=== PATIENT | male | born 1940 | race Caucasian/White ===

== ENCOUNTER 2016-08-26 18:35 | Inpatient (IN) | payer MEDICARE, MEDICAID ==
[2016-08-26 20:10] LABS: Hematocrit 47 % (42-52); Mean Corpuscular HGB Conc 32 g/dl (31-36); Mean Corpuscular Hemoglobin 27 pg (27-31); Mean Corpuscular Volume 84 fL (80-94); Mean Platelet Volume 9 um3 (7.4-10.4); Red Cell Distribution Width 17 % (10.5-15); White Blood Count 26.2 10^3/ul (3.5-10.8)
[2016-08-26 20:11] LABS: Add Diff/Slide Review? Slide Review Added; Comments Flag Yes
[2016-08-26 20:27] LABS: Albumin 4.2 g/dL (3.2-5.2); BUN/Creatinine Ratio 19.3 (8-20); Calcium 10.9 mg/dL (8.6-10.3); EGFR African American 39.4 (>60); EGFR Non-African American 30.6 (>60); Globulin 5.2 g/dL (2-4); Total Bilirubin 0.8 mg/dL (0.2-1.0); Total Protein 9.4 g/dL (6.4-8.9)
[2016-08-26 20:33] LABS: Troponin I 0.05 ng/mL (<0.04)
[2016-08-26 20:34] LABS: Potassium 5.4 mmol/L (3.5-5.0)
[2016-08-26] MEDS ORDERED: Piperac/Tazob 3.375 gm in NS* 3.375 GM/100 ML BAG IVPB ONE (20:38)
--- NOTE | 2016-08-26 20:44 | ED ---
Harvey Mcgarry Michael, scribed for Chuy Lane MD on 08/26/16 at 2006 . Adult Trauma - HPI Summary HPI Summary: 76 y/o male was [facility] from [facility], and he comes to the ED after a fall. The pt is non-ambulatory per EMS, and the jail staff believe he fell out of bed without LOC. He has laceration on right ear and injured the right sided of his trunk per EMS report. He also c/o SOB and constipation. The PMHx is significant for CVA and dementia. - History of Current Complaint Chief Complaint: EDShortnessOfBreath Stated Complaint: DIFF BREATHING Time Seen by Provider: 08/26/16 18:55 Hx Obtained From: EMS, Medical Records Hx From Patient Unobtainable Due To: Dementia Mechanism of Injury: Fall Ambulatory at the Scene: Yes Loss of Consciousness: no loss of consciousness Onset/Duration: Started Hours Ago, Still Present Onset of Pain: Immediate Onset Severity: Moderate Current Severity: Moderate Location: Abdomen/Pelvis - right sided Associated Signs & Symptoms: Positive: SOB, Other: - laceration-right ear pain. right sided trunk pain. constipation. Negative: Loss of Consciousness - Allergy/Home Medications Allergies/Adverse Reactions: Allergies Allergy/AdvReac Type Severity Reaction Status Date / Time No Known Allergies Allergy Verified 03/07/16 09:24 Home Medications: Home Medications Magnesium Hydroxide LIQ* [Milk of Magnesia LIQ*] 30 ml PO BID PRN 08/26/16 [ History Confirmed 08/26/16] Sennosides-Docusate Sodium [Colace 2-in-1 8.6-50 mg] 1 tab PO BEDTIME 08/26/16 [ History Confirmed 08/26/16] PMH/Surg Hx/FS Hx/Imm Hx Cardiovascular History: Reports: Hx Hypertension Musculoskeletal History: Reports: Other Musculoskeletal History - hemiplegia Sensory History: Reports: Hx Contacts or Glasses Opthamlomology History: Reports: Hx Contacts or Glasses Neurological History: Reports: Hx CVA, Hx Dementia, Other Neuro Impairments/ Disorders - Left hemiplegia, presumably from stroke Psychiatric History: Reports: Hx Depression, Other Psychiatric Issues/Disorders - Major Depresssive Disorder Infectious Disease History: Denies: Traveled Outside the [place] in Last 30 Days - Family History Known Family History: Positive: Unknown - The patient is a poor historian - Social History Occupation: Retired Lives: [facility] Alcohol Use: None Hx Substance Use: No Substance Use Type: Reports: None Hx Tobacco Use: No Smoking Status (MU): Never Smoked Tobacco Review of Systems Positive: Other - constipation Positive: Other - right sided trunk pain Positive: Other - laceration right ear. Negative: Syncope All Other Systems Reviewed And Are Negative: Yes Physical Exam Triage Information Reviewed: Yes Vital Signs On Initial Exam: Initial Vitals Pulse Resp BP Pulse Ox 141 32 116/78 92 08/26/16 18:38 08/26/16 18:38 08/26/16 18:38 08/26/16 18:38 Vital Signs Reviewed: Yes Completion Of Physical Exam Limited Due To: Extremis Appearance: Positive: No Pain Distress, Ill-Appearing Skin: Positive: Warm Head/Face: Positive: Normal Head/Face Inspection Eyes: Positive: SH[place]DA Neck: Positive: Supple Respiratory/Lung Sounds: Positive: Rales, Rhonchi - COARSE BILAT DIFFUSE Cardiovascular: Positive: Tachycardia Abdomen Description: Positive: Nontender, Soft Bowel Sounds: Positive: Present - [place] Coma Scale Coma Scale Total: 14 Diagnostics - Vital Signs Vital Signs Temp Pulse Resp BP Pulse Ox 08/26/16 18:42 98.7 F 141 33 116/78 92 08/26/16 18:38 141 32 116/78 92 - Laboratory Lab Results: Lab Results 08/26/16 08/26/16 08/26/16 Range/Units 20:04 20:04 20:04 WBC 26.2 H (3.5-10.8) 10^3/ul RBC 5.60 H (4.0-5.4) 10^6/ul Hgb 15.0 (14.0-18.0) g/dl Hct 47 (42-52) % MCV 84 (80-94) fL MCH 27 (27-31) pg MCHC 32 (31-36) g/dl RDW 17 H (10.5-15) % Plt Count 482 H D (150-450) 10^3/ul MPV 9 (7.4-10.4) um3 Neut % (Auto) 82.4 (38-83) % Lymph % (Auto) 9.8 L (25-47) % Canadian % (Auto) 7.2 (1-9) % Eos % (Auto) 0.1 (0-6) % Baso % (Auto) 0.5 (0-2) % Absolute Neuts (auto) 21.6 H (1.5-7.7) 10^3/ul Absolute Lymphs (auto) 2.6 (1.0-4.8) 10^3/ul Absolute Monos (auto) 1.9 H (0-0.8) 10^3/ul Absolute Eos (auto) 0 (0-0.6) 10^3/ul Absolute Basos (auto) 0.1 (0-0.2) 10^3/ul Absolute Nucleated RBC 0.02 10^3/ul Nucleated RBC % 0.1 INR (Anticoag Therapy) (0.89-1.11) Sodium 145 (133-145) mmol/L Potassium 5.4 H (3.5-5.0) mmol/L Chloride 103 (101-111) mmol/L Carbon Dioxide 28 (22-32) mmol/L Anion Gap 14 H (2-11) mmol/L BUN 41 H (6-24) mg/dL Creatinine 2.12 H (0.67-1.17) mg/dL Est GFR ( Amer) 39.4 (>60) Est GFR (Non-Af Amer) 30.6 (>60) BUN/Creatinine Ratio 19.3 (8-20) Glucose 137 H (70-100) mg/dL Lactic Acid 4.2 H* (0.5-2.0) mmol/L Calcium 10.9 H (8.6-10.3) mg/dL Total Bilirubin 0.80 (0.2-1.0) mg/dL AST 51 H (13-39) U/L ALT 21 (7-52) U/L Alkaline Phosphatase 106 H (34-104) U/L Troponin I 0.05 H* (<0.04) ng/mL Total Protein 9.4 H (6.4-8.9) g/dL Albumin 4.2 (3.2-5.2) g/dL Globulin 5.2 H (2-4) g/dL Albumin/Globulin Ratio 0.8 L (1-3) 05//17 Range/Units 20:04 WBC (3.5-10.8) 10^3/ul RBC (4.0-5.4) 10^6/ul Hgb (14.0-18.0) g/dl Hct (42-52) % MCV (80-94) fL MCH (27-31) pg MCHC (31-36) g/dl RDW (10.5-15) % Plt Count (150-450) 10^3/ul MPV (7.4-10.4) um3 Neut % (Auto) (38-83) % Lymph % (Auto) (25-47) % Canadian % (Auto) (1-9) % Eos % (Auto) (0-6) % Baso % (Auto) (0-2) % Absolute Neuts (auto) (1.5-7.7) 10^3/ul Absolute Lymphs (auto) (1.0-4.8) 10^3/ul Absolute Monos (auto) (0-0.8) 10^3/ul Absolute Eos (auto) (0-0.6) 10^3/ul Absolute Basos (auto) (0-0.2) 10^3/ul Absolute Nucleated RBC 10^3/ul Nucleated RBC % INR (Anticoag Therapy) 0.94 (0.89-1.11) Sodium (133-145) mmol/L Potassium (3.5-5.0) mmol/L Chloride (101-111) mmol/L Carbon Dioxide (22-32) mmol/L Anion Gap (2-11) mmol/L BUN (6-24) mg/dL Creatinine (0.67-1.17) mg/dL Est GFR ( Amer) (>60) Est GFR (Non-Af Amer) (>60) BUN/Creatinine Ratio (8-20) Glucose (70-100) mg/dL Lactic Acid (0.5-2.0) mmol/L Calcium (8.6-10.3) mg/dL Total Bilirubin (0.2-1.0) mg/dL AST (13-39) U/L ALT (7-52) U/L Alkaline Phosphatase (34-104) U/L Troponin I (<0.04) ng/mL Total Protein (6.4-8.9) g/dL Albumin (3.2-5.2) g/dL Globulin (2-4) g/dL Albumin/Globulin Ratio (1-3) Result Diagrams: 08/26/16 20:04 08/26/16 20:04 Lab Statement: Any lab studies that have been ordered have been reviewed, and results considered in the medical decision making process. - Radiology CXR Xray Interpretation: Positive (See Comments) - Bibasilar alveolar opacities concerning for pneumonia versus atelectasis. Probable small LEFT pleural effusion. Radiology Interpretation Completed By: Radiologist Adult Trauma Course/Dx - Course Course Of Treatment: Discussed patient care with Dr. Garay (Hospitalist) at 2044. The [place] [facility] - Diagnoses Provider Diagnoses: Aspiration pneumonia - Physician Notifications Instructed by Provider To: Admit As Inpatient - Critical Care Time Critical Care Time: 30-74 min Discharge - Discharge Plan Condition: Guarded Disposition: ADMITTED TO [facility] Discharge Disposition Comment: accepted as admission by Dr. Garay The documentation as recorded by the Harvey santacruz Michael accurately reflects the service I personally performed and the decisions made by me, Chuy Lane MD.
[2016-08-26] MEDS ORDERED: Vancomycin(*) 1,000 MG in NS 0.9% 250 ML* 250 ML IVPB ONE (21:00)
[2016-08-26] MEDS ORDERED: Acetaminophen TAB* 325 MG PO PRN (21:07)
[2016-08-26] MEDS ORDERED: Ondansetron INJ* 2 MG/ML VIAL IV PRN (21:07)
--- NOTE | 2016-08-26 21:12 | RAD ---
Indication: Difficulty breathing. Cough. Comparison: March 30, 2016 Technique: Sitting AP and lateral chest views. Report: Suboptimal inspiration. Mild bibasilar alveolar opacities. Arms down position limits assessment on the lateral view. Probable small LEFT pleural effusion. Negative for pneumothorax. Negative for cardiomegaly. Unremarkable central pulmonary vasculature. IMPRESSION: Bibasilar alveolar opacities concerning for pneumonia versus atelectasis. Probable small LEFT pleural effusion.
[2016-08-26] MEDS ORDERED: Vancomycin per Pharmacy* NOTE FOLLOW UP PRN (21:15)
[2016-08-26] MEDS: NS 0.9% 1000 ML* 2,000 ML IV ONE (22:21)
--- NOTE | 2016-08-26 22:40 | RAD ---
INDICATION: Abdominal tenderness post fall. Aspiration pneumonia. COMPARISON: Chest radiograph of the same date. March 07, 2016 abdomen radiograph. TECHNIQUE: Multidetector CT images were obtained from the lung bases to the ischial tuberosities. Evaluation of the viscera is limited without IV contrast. Multiplanar reformation. REPORT: Visualized inferior thorax is remarkable for a moderately large hiatal hernia and bilateral lower lung zone patchy alveolar opacities consistent with pneumonia. Negative for pleural effusion. The liver is remarkable for both portal venous gas and pneumobilia. Large volume of gas at the distended gallbladder. No gross CT evidence for gallbladder wall thickening. Negative for dilatation of the common bile duct. Atrophic pancreas with a few gas bubbles in the pancreatic duct. Unremarkable spleen. Distended stomach. Percutaneous gastric tube with tip at level of the proximal jejunum pneumatosis at the duodenum and proximal jejunum. Dilatation of the proximal jejunum up to 4.8 cm. No abrupt transition point evident. The mid to distal small bowel is completely decompressed. Unremarkable retrocecal appendix. Severe sigmoid diverticulosis without stigmata of acute diverticulitis. Significant rectal distention with stool. Small volume of free fluid in the pelvis. Negative for free intraperitoneal air. Small fat-containing umbilical and inguinal hernias without inflammatory change. Normal adrenal glands. Atrophic kidneys. 1.3 cm stone at the RIGHT renal pelvis. Negative for RIGHT hydronephrosis. Unremarkable nondilated RIGHT ureter. 0.8 cm stone at the midpole of the LEFT kidney. Negative for LEFT caliectasis. Normal variant LEFT extrarenal pelvis. Severely dilated LEFT ureter with distal decompression. At the pelvic inlet the LEFT ureter measures up to 2.7 cm diameter. No distal ureteral stone or conspicuous intrinsic or extrinsic obstructing lesion of the LEFT ureter evident. Urinary bladder is decompressed limiting assessment. Symmetric seminal vesicles. The prostate is diminutive and may have been resected. Negative for lymphadenopathy. Negative for aortoiliac aneurysm. Completely decompressed IVC indicating low volume state. Severe heterotopic bone formation about the hips. Bilateral hip joint effusions. Foci of gas at the RIGHT hip periarticular heterotopic bone formation. Nonacute appearing moderate anterior compression fracture of L1 involving the superior endplate. No acute fractures evident. IMPRESSION: 1. Bibasilar inflammatory infiltrates at the visualized lung bases. Negative for pleural effusions. 2. Portal venous gas and pneumobilia. Pneumatosis at the duodenum and proximal jejunum. Bowel ischemia is possible. Given absence of associated bowel wall thickening arterial insufficiency is more likely than venous obstruction. 3. Ileus versus partial obstruction at the proximal jejunum without narrow transition point. 4. Negative for free air. Small volume of pelvic ascites. 5. Significant rectal distention with stool. Severe sigmoid diverticulosis without stigmata of acute diverticulitis. 6. Atrophic kidneys. Bilateral nephrolithiasis without caliectasis. Severe dilatation of the LEFT ureter without visualized ureteral stone or obstructing lesion without associated periureteral inflammatory stranding suggesting that the dilatation may be chronic. 7. Completely decompressed IVC indicating low volume state. 8. Bilateral hip joint effusions. Foci of gas at the RIGHT hip periarticular heterotopic bone formation. While this may be indolent aseptic arthritis is not excluded.
[2016-08-26] MEDS: Metoprolol Tartrate IV* 1 MG/ML 5 ML VIAL IV SCH (22:43)
[2016-08-26] MEDS: Morphine INJ* 2 MG/ML 1 ML SYRINGE IV PRN (22:43)
[2016-08-26] MEDS: Heparin VIAL(*) 5000 UNITS/ML VIAL (FIVE THOUSAND) SUBCUT SCH (22:43)
[2016-08-26] MEDS: HYDROmorphone* 1 MG/ML 1 ML SYR IV SLOW PU PRN (23:07)
[2016-08-26] MEDS ORDERED: Vancomycin(*) 1,250 MG in NS 0.9% 250 ML* 250 ML IVPB ONE (23:30)
--- NOTE | 2016-08-26 23:45 | PN ---
Progress Note - Progress Note Note: Discussed patient and CT results with Dr. Martinez. Concern over Pneumobilia and Portal venous gas. Unclear how to even proceed surgically in this patient. Furthermore, transferring to another institution would unlikely be of benefit as with this patient's comorbidities, he would not be a surgical candidate. The patient's prognosis is grave and we will try conservative management. We will place an NGT and suction feeding tube. Already on broad spectrum antibiotics. Make patient as comfortable as possible. Have made every attempt to contact next of kin with no success. Will endeavor again in AM. However, I do not expect him to survive the night.
--- NOTE | 2016-08-26 23:51 | HP ---
HISTORY AND PHYSICAL: DATE OF ADMISSION: 08/26/16 PRIMARY CARE PROVIDER: Carole Hays MD. ATTENDING PHYSICIAN WHILE IN THE HOSPITAL: Dr. Amos Garay *(report being dictated by Nate Paz NP). CHIEF COMPLAINT: 1. Fall. 2. Hypoxia. HISTORY OF PRESENT ILLNESS: Mr. Gallo is a 76-year-old male patient, most of the H and P is obtained from review of [facility] Nursing notes that the patient is essentially is in acute respiratory distress. He is really unable to answer much questions. He has underlying history of dementia as well. The patient came in today because he was found nursing staff at [facility] to be on the floor. He was complaining and tender noted in the right side of his abdomen and chest wall. He was also noted to be hypoxic in the 70s. The patient has a history of CVA, dementia. He has a PEG tube. He has history of chronic pain and pneumonia and he has recurrent aspiration pneumonia. There has been no reports of recent vomiting or aspiration, but he came into the ER and was evaluated by Dr. Garay. It was noted that he was tachypneic, tachycardia. He had an elevated white count. He clearly appeared whether he may have aspirated again and we were asked to evaluate for admission. PAST MEDICAL HISTORY: According to the old notes: 1. History of CVA. 2. Dementia. 3. Chronic pain. 4. Pneumonia. PAST SURGICAL HISTORY: He has had a G-tube placement. HOME MEDICATIONS: Include according to the [facility] note: 1. MS Contin 15 mg p.o. b.i.d. 2. Tylenol 650 mg p.o. every 6 hours as needed. 3. Trazodone 25 mg p.o. at bedtime as needed. 4. Oxycodone 10 mg every 6 hours as needed. 5. Ativan 1 mg p.o. every 8 hours. 6. Cymbalta 60 mg daily. 7. Senna one tablet p.o. at bedtime. 8. Milk of mag 30 cc p.o. b.i.d. as needed. 9. Carvedilol 6.25 mg p.o. b.i.d. ALLERGIES TO MEDICATION: No known drug allergies. FAMILY HISTORY: Unknown. SOCIAL HISTORY: Unknown with the exception that he resides at [facility], who are trying to get a surrogate decision maker. Record states that he is DNR/DNI and there is no other family in the computer besides there is a sister in [place], but unfortunately no phone number. REVIEW OF SYSTEMS: Unable to be obtained. PHYSICAL EXAMINATION GENERAL: At this time, Mr. Gallo is a 76-year-old male patient. He does appear to be in moderate amount of respiratory distress. He is sitting in the ER stretcher. VITAL SIGNS: Blood pressure 116/78 with pulse of 141, respirations 33, O2 sat 92% on 10 L, temperature 98.7 HEENT: Head: Atraumatic. Eyes: Clear, anicteric. Pupils react to light. Throat: Oral mucosa appeared to be moist. No oropharyngeal erythema. NECK: Supple. LUNGS: He had rhonchi throughout. Respirations were at 35. HEART: Sounds S1, S2. He is tachycardic at the 140s. ABDOMEN: Soft. It was flat. There was tenderness in the right upper quadrant and right chest wall. EXTREMITIES: Pulses were 2+ throughout. He had +2 pitting edema. He had pain with range of motion to the right hip. NEUROLOGIC: He is awake, but he is alert to himself only. He only moans. He has no gross obvious focal deficits. SKIN: Intact. DIAGNOSTIC STUDIES/LAB DATA: Labs reveal WBC 26.2, RBC of 5.60, hemoglobin 15.0, hematocrit of 47, platelet count of 482. The INR was 0.94. Sodium was 145, potassium 5.4, chloride of 103, bicarb of 28, BUN 41, creatinine 2.12, glucose 137, lactic 4.2, calcium 10.9, total bili 0.8, AST 51, ALT 21, alk phos 106. Troponin 0.05. BNP 167. Albumin of 4.2. He had a chest x-ray, which impression read a bibasilar alveolar opacities concerning for pneumonia versus atelectasis, probable small left pleural effusion. EKG pending. Old medical records reviewed. ASSESSMENT AND PLAN: Mr. Gallo is a 75-year-old male patient coming into the ER today status post fall and hypoxia. On evaluation in the ED, it was noted that again he was tachypneic, tachycardiac, appeared to be septic. He will be admitted under inpatient status for: 1. Sepsis secondary to aspiration pneumonia with septic shock. His lactic acid is 4.1. Unfortunately, his blood pressure is holding, but he is certainly altered, currently he is tachypneic. His troponin is mildly elevated. My plan at this point is to give him vanco and Zosyn. We will give him 2 L of fluid upfront, normal saline at [address] on Vapotherm. He does have a DNR/DNI in the system here, so if the Vapotherm does not prove to be effective , we may have to consider switching him to comfort measures. I have ordered morphine already for shortness of breath and see if we can pull through within his wishes. 2. History of cerebrovascular accident. Continue secondary prevention. 3. History of dementia. Continue supportive care. 4. Chronic pain. P.r.n. morphine available. 5. Deep venous thrombosis prophylaxis. He will be placed on heparin subcu. 6. Code status. DNR/DNI. 7. Surrogate decision maker. Again there is a healthcare proxy listed with the patient's sister's name of Nellie Lo, but unfortunately I have called [facility] and unable to get a phone number for the patient's next of kin , so we will put social work consult in. He does have a [facility]OL[facility] form here filled out that did state DNR/DNI, which was filled out with Dr. Flaherty back in December. We will honor his wishes obviously and we will try and get in touch with family and I placed a social work consult. 8. Fluids, Nutrition: He is n.p.o. with aspiration precaution. 9. Indeterminate troponins. It is probably secondary to demand ischemia. We will follow. TIME SPENT: Time spent on the admission was approximately 70minutes, greater than half the time was spent [id number] with the patient obtaining my history and physical; the other half time was spent going over the plan of care with the patient and implementing plan of care. I did discuss the plan of care with my attending, Dr. Garay; he is in agreement. NATE PAZ NP CC: Carole Hays MD* [id number]/[facility] #: [id number] AUBREE
[2016-08-27] MEDS: NS 0.9% 1000 ML* 2,000 ML IV ONE (00:06)
[2016-08-27] MEDS: NS 0.9% 1000 ML* 1,000 ML IV SCH ×2 (00:51→10:16)
[2016-08-27] MEDS: Piperac/Tazob 3.375 gm in NS* 3.375 GM/100 ML BAG IVPB SCH ×2 (00:51→13:22)
[2016-08-27] MEDS: HYDROmorphone* 1 MG/ML 1 ML SYR IV SLOW PU PRN ×3 (00:59→16:49)
[2016-08-27] MEDS: NS 0.9% 1000 ML* 3,000 ML IV ONE ×3 (03:34→05:19)
[2016-08-27] MEDS: Metoprolol Tartrate IV* 1 MG/ML 5 ML VIAL IV SCH (03:38)
[2016-08-27] MEDS: Heparin VIAL(*) 5000 UNITS/ML VIAL (FIVE THOUSAND) SUBCUT SCH (06:11)
[2016-08-27] MEDS: Morphine INJ* 2 MG/ML 1 ML SYRINGE IV PRN (06:39)
[2016-08-27 06:42] LABS: Hematocrit 36 % (42-52); Hemoglobin 10.9 g/dl (14.0-18.0); Mean Corpuscular HGB Conc 30 g/dl (31-36); Mean Corpuscular Hemoglobin 26 pg (27-31); Mean Corpuscular Volume 87 fL (80-94); Mean Platelet Volume 9 um3 (7.4-10.4); Red Blood Count 4.18 10^6/ul (4.0-5.4); Red Cell Distribution Width 17 % (10.5-15); White Blood Count 15.7 10^3/ul (3.5-10.8)
[2016-08-27 06:43] LABS: Add Diff/Slide Review? Slide Review Added; Comments Flag Yes
[2016-08-27 06:58] LABS: Urine Bacteria 1+ (Absent); Urine Bilirubin Negative (Negative); Urine Glucose Negative (Negative); Urine Nitrite Negative (Negative)
[2016-08-27 07:02] LABS: BUN/Creatinine Ratio 17.5 (8-20); Calcium 7.3 mg/dL (8.6-10.3); EGFR African American 31.5 (>60); EGFR Non-African American 24.5 (>60); Potassium 4.4 mmol/L (3.5-5.0)
[2016-08-27 07:20] LABS: Immature Granulocytes 29 % (0-9); Metamyelocytes % 2 % (0-2); Neutrophil % 43 % (38-83)
[2016-08-27 07:21] LABS: Hypochromasia 1+
--- NOTE | 2016-08-27 07:41 | RAD ---
HISTORY: Shortness of breath, congestion COMPARISONS: August 26, 2016 VIEWS:1: Single frontal portable view of the chest at 7:00 AM FINDINGS: LINES AND TUBES: None. CARDIOMEDIASTINAL SILHOUETTE: The cardiomediastinal silhouette is normal for portable technique. PLEURA: The costophrenic angles are sharp. No pleural abnormalities are noted. LUNG PARENCHYMA: The lung volumes are low. There is conflict alveolar opacification of the right lung base and to lesser extent of the left lung base ABDOMEN: The upper abdomen is clear. There is no subphrenic gas. BONES AND SOFT TISSUES: No bone or soft tissue abnormalities are noted. IMPRESSION: LOW LUNG VOLUMES WITH BIBASILAR, RIGHT GREATER THAN LEFT, CONSOLIDATION
[2016-08-27] MEDS ORDERED: Morphine INJ* 10 MG/ML 1 ML SYRINGE ONE ×2 (09:39→10:26)
[2016-08-27] MEDS: Morphine INJ* 10 MG/ML 1 ML SYRINGE IV ONE ×2 (09:44→10:09)
[2016-08-27] MEDS ORDERED: Morphine INJ* 10 MG/ML 1 ML SYRINGE IV ONE ×2 (09:57→10:25)
[2016-08-27] MEDS ORDERED: Morphine PCA ADULT* 5 MG/ML 30 ML PCA SCH (10:00)
[2016-08-27] MEDS ORDERED: Morphine PCA ADULT* 5 MG/ML 30 ML ONE (10:01)
--- NOTE | 2016-08-27 10:35 | PN ---
Progress Note - Progress Note Note: CRITICAL CARE MEDICINE Date: 08/27/16 Time: 945 SUBJECTIVE: Patient seen and examined. Dynamics and history reviewed. Made it through the night but unfortunately unable to survive today. PHYSICAL EXAM: Vital Signs: Reviewed. Neurologic: obtunded but opens eyes HEENT: pupils equal. Sclera anicteric. Trachea midline. Cardiovascular: S1 S2 tachy Respiratory: tachypnic into 40s, paradoxical with audible rales without scope needed and not clearing airway Abdomen: Soft, distended, dec bs. Extremities: Warm. Access: piv LABS: Reviewed. IMAGING: Reviewed. MEDICATIONS: Reviewed. ASSESSMENT: 76 M dying from MSOF Acute hypoxic respiratory failure s/p aspiration pneumonitis, ards Septic shock sec to this Hypoxic encephalopathy Pneumobilia and with possible mesenteric ischemia Acute renal failure - anuric, with Cr worse despite >6L fluid Lactic acidosis on admission h/o cva and peg tube PLAN: he is dying and in extremis currently. Cannot be saved with current measures, he has already indicated more then once against life support intubation and cpr , nor would either of these help at this stage. Needs agreesive comfort measures now as he is already maxed on HFO2 with failing hypoxic and hypercarbic ventilation at this time. Morphine boluses to get rr down to at least low 20s and then utilize gtt to maintain. Nursing and social work continue our efforts to locate family but to no avail at this point. Would stop non-essential meds. Leave HFO2 for now as long as he can become comfortable but would not try and prolong suffering. Supportive and preventative care as ordered. Disposition: mortal Code Status: DNR/DNI Critical Care Time: 35min Rafael Lucas DO
[2016-08-27] MEDS ORDERED: HYDROmorphone* 2 MG/ML 1 ML SYR IV SLOW PU ONE (12:14)
[2016-08-27] MEDS ORDERED: HYDROmorphone* 2 MG/ML 1 ML SYR ONE (12:22)
--- NOTE | 2016-08-27 14:18 | PN ---
Progress Note - Progress Note Note: CRITICAL CARE MEDICINE Date: 08/27/16 Time: 1345 Actually maintaining some still, taken away some demand, but still too tachypnic and failing. Stupor. anuria continue. Would leave on HFO2 for now and continue to treat comfortably. Code Status: DNR/DNI Critical Care Time: 12min Rafael Lucas, DO
[2016-08-27] MEDS ORDERED: NS 0.9% 1000 ML* 1,000 ML IV SCH (20:30)
[2016-08-27] MEDS ORDERED: Vancomycin Random Level* NOTE FOLLOW UP ONE (21:00)
[2016-08-27] MEDS: Morphine PCA ADULT* 5 MG/ML 30 ML PCA SCH (21:39)
[2016-08-28] MEDS: Morphine PCA ADULT* 5 MG/ML 30 ML PCA SCH ×3 (08:04→21:56)
[2016-08-28] MEDS: Morphine INJ* 2 MG/ML 1 ML SYRINGE IV PRN ×2 (08:06→16:04)
[2016-08-28] MEDS ORDERED: Furosemide IV* 10 MG/ML 10 ML VIAL (100 MG) IV ONE (10:00)
[2016-08-28] MEDS: Hydrocortisone INJ* 100 MG VIAL IV SCH ×2 (10:31→17:51)
--- NOTE | 2016-08-28 10:55 | PN ---
Progress Note - Progress Note Note: CRITICAL CARE MEDICINE Date: 08/28/16 Time: 930 SUBJECTIVE: Patient seen and examined. amazingly made it through the night. PHYSICAL EXAM: Uout only 55 all day Vital Signs: Reviewed. rr still 30s but still appears more comfortable Neurologic: obtunded but can opens eyes to stimuli. HEENT: pupils equal. Sclera anicteric. Trachea midline. Cardiovascular: S1 S2 reg Respiratory: tachypnic into 30s, with upper lobe ventilation only Abdomen: Soft, distended, dec bs. Extremities: Warm. Access: piv LABS: Reviewed. IMAGING: Reviewed. MEDICATIONS: Reviewed. ASSESSMENT: 76 M dying from MSOF Acute hypoxic respiratory failure s/p aspiration pneumonitis, ards Septic shock sec to this Hypoxic encephalopathy Pneumobilia and with possible mesenteric ischemia Acute renal failure - anuric, with Cr worse despite >6L fluid Lactic acidosis on admission h/o cva and peg tube PLAN: he was supported through the night and remains with MSOF on HFO2 but maintaining his upper lobe ventilation and defervesced and perhaps some dissipation of acute pneumonitis. Can trial stress dose steroids and high dose diuretic today for what it is worth. Not an abx fix. cx neg too. Lets dec Morphine slightly to maintain his comfort but test for any ability to thrive, although this seems unlikely, but if he is still here perhaps we can find a way to work while remaining comfortable. Supportive and preventative care as ordered. Disposition: ICU Code Status: DNR/DNI Critical Care Time: 30min Rafael Lucas DO
[2016-08-28] MEDS: HYDROmorphone* 1 MG/ML 1 ML SYR IV SLOW PU PRN (19:55)
[2016-08-28] MEDS ORDERED: Morphine PCA ADULT* 5 MG/ML 30 ML PCA SCH (22:34)
[2016-08-29] MEDS: HYDROmorphone* 1 MG/ML 1 ML SYR IV SLOW PU PRN ×5 (00:22→23:37)
[2016-08-29] MEDS: Hydrocortisone INJ* 100 MG VIAL IV SCH ×3 (02:03→18:23)
[2016-08-29] MEDS ORDERED: LORazepam INJ* 2 MG/ML 1 ML VIAL ONE (05:25)
[2016-08-29] MEDS: LORazepam INJ* 2 MG/ML 1 ML VIAL IV PUSH PRN ×3 (05:30→19:40)
[2016-08-29] MEDS ORDERED: HYDROmorphone PCA* 20 MG/20 ML PCA.SYRING PCA SCH (11:00)
--- NOTE | 2016-08-29 11:35 | PN ---
Progress Note - Progress Note Note: CRITICAL CARE MEDICINE Date: 08/29/16 Time: 1100 SUBJECTIVE: Patient seen and examined. amazed further. RR 20s and maintianing sat. little more urine out although not much. He awakes to stimuli and cries out in discomfort. On morphine still 15mg/hr. PHYSICAL EXAM: Vital Signs: Reviewed. Neurologic: lethargic but painful response to stimuli. HEENT: pupils equal. Sclera anicteric. Trachea midline. Cardiovascular: S1 S2 reg Respiratory: still with upper lobe ventilation and dec lowers Abdomen: Soft, distended, dec bs. Extremities: Warm. +edema Access: piv LABS: Reviewed. IMAGING: Reviewed. MEDICATIONS: Reviewed. ASSESSMENT: 76 M dying from MSOF Acute hypoxic respiratory failure s/p aspiration pneumonitis Distributive/hypoxic shock sec to this, no septic origin found Hypoxic encephalopathy Pneumobilia and with possible mesenteric ischemia Acute renal failure - anuric Lactic acidosis on admission h/o cva and peg tube PLAN: amazingly still here however systems still not compatible with life despite life supports and still uncomfortable. Try to change order entry clerk gtt to dilaudid and see if we can alleviate his discomfort. If tolerating we will wean O2 as he has less flow requirement now and just need to guage what his O2 needs are. Stay off IVF and see if nay further spont renal recovery possible in time post ATN. Would not resume tf at this time given bowel ailments and would only resume if his renal and lung function support life off life support, and then only if Bms and BS present. Can eval labs today to see if any other benefits for him. Palliative care eval tomorrow. Social work f/u Supportive and preventative care as ordered. Disposition: ICU Code Status: DNR/DNI Critical Care Time: 25min Rafael Lucas DO
[2016-08-29 12:25] LABS: Hematocrit 30 % (42-52); Hemoglobin 9.2 g/dl (14.0-18.0); Mean Corpuscular HGB Conc 31 g/dl (31-36); Mean Corpuscular Hemoglobin 26 pg (27-31); Mean Corpuscular Volume 86 fL (80-94); Mean Platelet Volume 9 um3 (7.4-10.4); Red Blood Count 3.51 10^6/ul (4.0-5.4); Red Cell Distribution Width 17 % (10.5-15); White Blood Count 12.4 10^3/ul (3.5-10.8)
[2016-08-29 12:37] LABS: Albumin 2.9 g/dL (3.2-5.2); BUN/Creatinine Ratio 19.1 (8-20); Calcium 8.9 mg/dL (8.6-10.3); EGFR African American 12.9 (>60); EGFR Non-African American 10.1 (>60); Globulin 3.8 g/dL (2-4); Magnesium 2.9 mg/dL (1.9-2.7); Phosphorus 7.4 mg/dL (2.5-5.0); Total Bilirubin 0.4 mg/dL (0.2-1.0); Total Protein 6.7 g/dL (6.4-8.9)
[2016-08-29] MEDS: HYDROmorphone PCA* 20 MG/20 ML PCA.SYRING PCA SCH (20:26)
[2016-08-30] MEDS: LORazepam INJ* 2 MG/ML 1 ML VIAL IV PUSH PRN ×5 (01:25→22:56)
[2016-08-30] MEDS: Hydrocortisone INJ* 100 MG VIAL IV SCH (01:25)
[2016-08-30] MEDS: HYDROmorphone* 1 MG/ML 1 ML SYR IV SLOW PU PRN ×4 (05:17→22:56)
[2016-08-30] MEDS: HYDROmorphone PCA* 20 MG/20 ML PCA.SYRING PCA SCH ×3 (05:24→23:33)
--- NOTE | 2016-08-30 08:59 | PN ---
Progress Note - Progress Note Note: Progress Note Critical Care 24 hour events/significant events: -remains on NC, no resp distress, awakens, no distress -still with abdominal discomfort -afebrile Tele: NSR Vitals: Vital Signs Temp 97.3 F 08/29/16 23:25 Pulse 82 08/30/16 07:00 Resp 18 08/30/16 08:00 BP 156/85 08/30/16 07:00 Pulse Ox 93 08/30/16 07:00 Intake & Output 08/29/16 08/30/16 08/30/16 18:59 06:59 18:59 Intake Total 39 185 Output Total 600 1200 Balance -561 -1015 Weight 187 lb 13.341 oz Intake: IV Fluids 39 185 Antibiotics 39 185 Output: G Tube 200 300 Ordoñez 400 900 O2/Vent: hiflow 15Lpm, sat 94%, rr16 Infusions: dilaudid small products ii assembler for pain Medications: Acetaminophen (Tylenol Tab*) 650 mg PO Q4H PRN PRN Reason: FEVER/PAIN Hydrocortisone Sodium Succinate (Solu-Cortef*) 50 mg IV Q8H URVASHI Last Admin: 08/30/16 01:25 Dose: 50 mg Hydromorphone HCl (Dilaudid Iv*) 1 mg IV SLOW PU Q2H PRN PRN Reason: PAIN Last Admin: 08/30/16 05:17 Dose: 1 mg Sodium Chloride (Ns 0.9% 1000 Ml*) 1,000 mls @ 0 mls/hr IV KVO URVASHI PRN Reason: KVO Hydromorphone HCl (Dilaudid Bow Making Machine Operator*) 20 mg in 20 mls @ 0 mls/hr CASH APPLICATIONS CLERK .change Q24H URVASHI; Per Protocol PRN Reason: Protocol Last Admin: 08/30/16 05:24 Dose: 2 mls/hr Famotidine 20 mg/ Sodium (Chloride) 102 mls @ 408 mls/hr IVPB DAILY URVASHI Lorazepam (Ativan Inj*) 2 mg IV PUSH Q6H PRN PRN Reason: ANXIETY Last Admin: 08/30/16 07:58 Dose: 2 mg Ondansetron HCl (Zofran Inj*) 4 mg IV Q6H PRN PRN Reason: NAUSEA Physical Exam: General: awake, not alert, moans, nonverbal, no distress, no diaphoresis Head: normocephalic, atraumatic HEENT: no pallor, no icterus, dry mucous membranes Neck: no stridor, no jvd CVS: normal rate, normal rhythm, no murmur Resp: bilateral air entry, no rhales, no wheeze, no rhonchi, no acc muscle use Abdomen: soft, tender diffusely, tense but not distended, bowel sounds present but diminished Ext: pulses+, warm, no edema Skin: intact, no breakdown, no dryness; posterior sacral nonblanching stage 1 pressure wounds Neuro: awake, not alert, moves arms spontaneously but not to command, not verbal , doesnt track, unable to assess full neuro exam. Labs: Laboratory Results - last 24 hr 08/29/16 08/29/16 12:15 12:15 WBC 12.4 H RBC 3.51 L Hgb 9.2 L Hct 30 L MCV 86 MCH 26 L MCHC 31 RDW 17 H Plt Count 225 MPV 9 Neut % (Auto) 89.3 H Lymph % (Auto) 6.1 L Swift % (Auto) 4.5 Eos % (Auto) 0 Baso % (Auto) 0.1 Absolute Neuts (auto) 11.1 H Absolute Lymphs (auto) 0.8 L Absolute Monos (auto) 0.6 Absolute Eos (auto) 0 Absolute Basos (auto) 0 Absolute Nucleated RBC 0.02 Nucleated RBC % 0.2 Sodium 150 H Potassium 5.0 Chloride 112 H Carbon Dioxide 27 Anion Gap 11 BUN 106 H Creatinine 5.56 H Est GFR ( Amer) 12.9 Est GFR (Non-Af Amer) 10.1 BUN/Creatinine Ratio 19.1 Glucose 131 H Calcium 8.9 Phosphorus 7.4 H Magnesium 2.9 H Total Bilirubin 0.40 AST 59 H ALT 67 H Alkaline Phosphatase 82 Total Protein 6.7 Albumin 2.9 L Globulin 3.8 Albumin/Globulin Ratio 0.8 L Imaging: Cxr 08/27 RLL consolidation+, possible small left lower lobe infiltrate; no effusion Assessment: 76y M pmhx of HTN, CVA with hemiplegia/dysphagia, nonverbal? Who came in 08/26 for fall, sob and hypoxia, found to have aspiration pneumonia, mesenteric ischemia with pneumobilia and now HBUMI; was already DNR/DNI status. -Acute Hypoxic Respiratory Failure -Aspiration pneumonia -Septic Shock?, improved -Mesenteric Ischemic -BHUMI, septic ATN vs volume depletion/pre-renal azotemia -Lactic acidosis improved -h/o CVA, hemiplegia/dysphagia -dislodged j-tube ? Plan: Neuro- baseline CVA, nonverbal? can he understand me? nonmobile. CVS- hypertensive; no hypotension noted. on hydrocortisone IV now. will taper. Resp- remains on hiflow cannula, sats mid 90s, no resp distress. cont weaning fio2, bronchodilators. no NIV indicated. last cxr with RLL infiltrate. no abx, remains afebrile. doesnt sound wet or with rhales. slow improvement. off feeds now. ID- wbc improving, afebrile. off abx. has been stable and slowly improving it seems? not coming off hiflow though. monitor off abx, likely just pneumonitis from aspiration. GI- jtube with ordoñez to hold opening; has been NPO. abdomen yeast tender. would need to have jtube place back and can attempt to restart feeds slowly, trophic doses. Renal- Cr rising, anuric/oliguric. K normal still. no acidosis. hypernatremia+, start d51/2ns infusion. appears euvolemic to me, will hydrate and then attempt lasix to see if urine output picks up. is HD an option in this gentleman who is bed bound, post CVA, poor quality of life, with mesenteric ischemia, aspiration pneumonia/aspiration risk and DNR as per previous orders ? HD would not benefit his quality of life nor change it in any significant way. Would probably avoid that route completely. Heme- hg down now, likely was hemoconcentrated before on admission. no bleeding noted. no antiplatelets/AC on board. Endo- FS checks as needed Musculsk- in bed, not mobile much. unclear how much he can work with PT Wounds- stage 1 sacral pressure wounds; wound care Nutrition- NPO still; might be able to try some trophic feeds but needs NGT or replace jtube. DVT prophylaxis: compression boots GI prophylaxis: yes Central Line: no Arterial Line: no Ordoñez Cathetor: yes Disposition: no family to be contacted. on pain control with dilaudid for mesenteric ischemia. not a surgical candidate. Need to clarify if comfort care is the option here. remains DNR. no active hemodyn/resp distress. can likely be sent to floor with O2, dilaudid push for pain prn. Code Status: DNR Octavio Deras MD Internal Revenue Service Agent (Electronically Signed)
[2016-08-30] MEDS ORDERED: Hydrocortisone INJ* 100 MG VIAL IV SCH (09:00)
[2016-08-30] MEDS: D5W 1/2 NS 1000 ML BAG* 1,000 ML IV SCH ×2 (10:56→10:57)
[2016-08-30] MEDS: fentaNYL PATCH 25 MCG/HR TRANSDERM SCH (14:31)
--- NOTE | 2016-08-30 15:23 | PN ---
Progress Note - Progress Note Note: Follow up Palliative care note Spoke with Nellie Lo, HCP and Sister to patient - . She has not seen him since he was 21 yrs of age. Discussed his poor prognosis with his mulitple medical issues including worsening renal failure, ischemic bowel with obstruction and possible septic joint. She would like to keep him comfortable. She does not want him to go through any more blood tests and unnecessary tests. I discussed that he will unlikely survive to discharge back with hospice to [facility]. Will increase his dilaudid and ativan as per RN he is still crying out frequently and seems still quite agitated. Will also place comfort diet and comfort orders.
--- NOTE | 2016-08-30 16:13 | RAD ---
INDICATION: Acute kidney injury, anterior. COMPARISON: Comparison is made with a prior CT of the abdomen and pelvis from August 26, 2016. TECHNIQUE: Multiple real-time images of the kidneys and urinary bladder were obtained. FINDINGS: The kidneys are small in size and increased in echogenicity consistent with medical renal disease. The right kidney measured 9.7 x 4.9 x 4.9 cm and the left kidney measured 9.7 x 4.4 x 4.7 cm. No significant focal abnormality or hydronephrosis was present. The bladder is decompressed with a catheter present. The bladder wall appears slightly thickened which is likely due to incomplete distention. No ureteral jets were seen. The prostate gland was not well visualized. The bladder volume during the study was 35 mL and 0 mL postdrainage. IMPRESSION: THE KIDNEYS ARE SMALL IN SIZE AND INCREASED IN ECHOGENICITY CONSISTENT WITH MEDICAL RENAL DISEASE. THERE IS NO EVIDENCE FOR HYDRONEPHROSIS.
[2016-08-30] MEDS: fentaNYL Patch Check Q Shift 1 NOTE SCH (20:26)
--- NOTE | 2016-08-30 20:35 | CONS ---
PALLIATIVE CARE CONSULTATION: DATE OF CONSULT: 08/30/16 PRIMARY CARE PHYSICIAN: [facility]. REQUESTING PHYSICIAN FOR CONSULT: Dr. Deras. HOSPITAL COURSE: This is a 76-year-old male with a past medical history of CVA with left-sided hemiparesis with dysphagia and G-tube placement and dementia, who presented to the emergency room via EMS from [facility] after falling and found to be hypoxic. The patient was unable to answer any questions on admission on the . They felt that he was hypoxic secondary to aspiration pneumonia and was admitted to the ICU, placed on Vapotherm. On admission, the patient also had an abdominal pelvis CAT scan that showed bibasilar inflammatory infiltrates, negative for pleural effusions, portal venous gas, and pneumatosis, bowel ischemia is possible, ileus versus partial bowel obstruction at the proximal jejunum. He had severe dilatation of the left ureter without visualized ureteral stone obstruction or obstructing lesion without associated perirenal inflammation or stranding suggest that the dilatation may be chronic. Bilateral hip joint effusions, foci of gas at the right hip periarticular heterotopic bone formation, while this may be indolent, aseptic arthritis is not excluded. He is also known to have a non-acute appearing moderate anterior compression fracture at L1 involving the superior endplate, no acute fractures evident. In terms of the patient's social history , he was admitted back in March of 2016 for aspiration pneumonia. He had a Palliative Care Consultation at that time with Dr. Flaherty, who felt he had the capacity to make his own medical decisions. He deemed his sister, Nellie Neely, who lives in [place] as his healthcare proxy and he also stated that he would not want to be resuscitated or intubated, that he would want to come back to the hospital if he were ill again. At that time, he was not eligible for hospice, but on this admission with recurrent aspiration, also concerning with worsening renal failure, this possible bowel obstruction versus ischemic colitis and septic joint, he is certainly eligible for hospice at this time. On my encounter, the patient is able to barely articulate his name. He states that he is in pain. It is hard to know where with questioning, but palpating his right hip region, he screamed out in pain. Otherwise, unable to obtain review of systems. PAST MEDICAL HISTORY: 1. Admission back in March of 2016 for aspiration pneumonia. 2. History of a CVA. 3. Dementia, unclear severity. 4. History of chronic pain. 5. History of dysphagia, with G-tube placement. INPATIENT MEDICATIONS: 1. Tylenol 650 mg every 4 hours as needed. 2. D5 half-normal saline at 75 cc an hour. 3. Dilaudid pump 2 mg an hour. 4. Hydrocortisone 50 mg q.12 hours. 5. Ativan 2 mg q.6 hours as needed. 6. Zofran 4 mg every 6 hours as needed. 7. Famotidine 20 mg daily. ALLERGIES: No known drug allergies. FAMILY HISTORY: Unable to obtain. SOCIAL HISTORY: As mentioned, the patient resides at [facility]. Back in March, he deemed his sister, Nellie Neely, as his healthcare proxy. He had capacity at that time and deemed himself a DNR/DNI. Unclear about any further social history. REVIEW OF SYSTEMS: Unable to obtain. PHYSICAL EXAM: Vitals: Temp 95.6, pulse rate 76, respiratory rate 16, oxygen saturation 94% on 15 L nasal cannula, blood pressure 125/64. General: No acute distress. Does moan out intermittently and he cries out with palpation of his pelvic region. HEENT: Pupils are reactive, anicteric. Head: Normocephalic. Oropharynx: Mucous membranes dry. Cardiac: Tachycardic. Soft systolic murmur. Respiratory: Coarse upper airway breath sounds, diminished at the bases. Abdomen: Hypoactive bowel sounds. Soft, tender diffusely. Extremities: The patient's right lower extremity is slightly short and externally rotated and as mentioned, significant pain with palpation over his right hip. Extremities: +1 pretibial edema. Neurologic: The patient is able to open his eyes. He is able to say his name. He can squeeze my hands on 1/5. Minimal lower extremity movement. DIAGNOSTIC STUDIES/LAB DATA: White count 12.4, hemoglobin 9.2, hematocrit 30, platelets 225. On the 12th, he had a bandemia of 27. Sodium 150, potassium 5, chloride 112, BUN 106, creatinine 5.56. Radiographic data: As mentioned above. ASSESSMENT AND PLAN: This is a 76-year-old male with a past medical history of cerebrovascular accident, who has a history of hemiparesis and dysphagia, with a G- tube, with dementia, who presents to the emergency room, found to be hypoxic, felt to be secondary to aspiration pneumonia and a subsequent fall. The patient now with worsening renal failure. It also appears on his CAT scan that he may have an ileus versus small bowel obstruction and possibly ischemic colitis. The other concern on his CAT scan and his clinical exam is his right hip concerning for a septic hip. He appeared to have a bandemia on admission and seems to be in a significant amount of discomfort. At this time, we are actively searching for his sister and we will be in touch with her to update her. The patient clearly is eligible for hospice at this time and is in a significant amount of discomfort. I would recommend increasing his pain meds and I will speak with Dr. Deras about this and further explain the septic joint if he should get this aspirated to see if this may be the etiology behind his presentation and to also further clarify with the healthcare proxy regarding dialysis and how aggressive she would like us to be, as getting his pain under control will be an issue with his worsening renal function and his respiratory status. Once we have contact information with the sister, I will reach out with her and as mentioned follow up with Judy, community mental health social worker, and the operations manager/coordinator. At this time, the MOLST form is a DNR/DNI. Thank you for this consultation. We will follow along with you. PATIENT TIME: Greater than 90 minutes spent doing the consultation, more than half the time spent in direct patient contact. CC: [facility]* [id number]/CPS #: [id number] MTDD
[2016-08-31] MEDS: LORazepam INJ* 2 MG/ML 1 ML VIAL IV PUSH PRN ×3 (06:17→22:52)
[2016-08-31] MEDS: fentaNYL Patch Check Q Shift 1 NOTE SCH ×2 (07:14→20:09)
[2016-08-31] MEDS: HYDROmorphone PCA* 20 MG/20 ML PCA.SYRING PCA SCH ×3 (08:30→21:49)
--- NOTE | 2016-08-31 08:31 | PN ---
Progress Note - Progress Note Note: Progress Note Critical Care 24 hour events/significant events: -remains on hiflow cannula; comfortable in bed, awakens to tactile stimuli. continuous still operator on examination of abdomen and movement of hips -nonverbal, just moans; no distress/diaphoresis -a family memeber was found yesterday (sister) Nelile who is patients written HCP ; though she hasnt seen patient since his 20s she understands his life. She was told of his medical condition (aspiration, fall, ischemic bowel, ?septic joint, BHUMI) and does not want to put him through any further tests/procedures. His wishes were DNR/DNI as per previous discussions/wishes documented. She is in agreement with comfort measures. -continued on dilaudid 2mg/hr infusion for pain; prn iv dilaudid for breaththru ; fentanyl patch started yesterday with some more relief. -has started making urine yesterday Tele: NSR Vitals: i/o [id number] Vital Signs Temp 95.8 F 08/31/16 00:01 Pulse 71 08/31/16 00:01 Resp 18 08/31/16 08:30 BP 122/60 08/31/16 00:01 Pulse Ox 95 08/31/16 02:16 Intake & Output 08/30/16 08/31/16 08/31/16 18:59 06:59 18:59 Intake Total 462 87 Output Total 575 650 Balance -113 -563 Intake: IV Fluids 462 87 Antibiotics 132 D5W 1/2 NS 330 NS (0.9%) 87 Output: G Tube 200 Ordoñez 575 450 Other: Date of Last Bowel 08/30/16 Movement # Bowel Movements 1 Estimated Stool Amount Small O2/Vent: hiflow 15Lpm, sat 94%, rr16 Infusions: dilaudid council member 2mg/hr Medications: Acetaminophen (Tylenol Tab*) 650 mg PO Q4H PRN PRN Reason: FEVER/PAIN Fentanyl (Duragesic Patch 25 Mcg/Hr*) 25 mcg TRANSDERM Q72H URVASHI Last Admin: 08/30/16 14:31 Dose: 25 mcg Hydromorphone HCl (Dilaudid Iv*) 1 mg IV SLOW PU Q1HR PRN PRN Reason: PAIN Last Admin: 08/30/16 22:56 Dose: 1 mg Hydromorphone HCl (Dilaudid Crusher Supervisor*) 20 mg in 20 mls @ 0 mls/hr CLINICAL TRANSPLANT COORDINATOR .change Q24H URVASHI; Per Protocol PRN Reason: Protocol Last Admin: 08/31/16 08:30 Dose: 2 mls/hr Lorazepam (Ativan Inj*) 2 mg IV PUSH Q2HR PRN PRN Reason: ANXIETY Last Admin: 08/31/16 06:17 Dose: 2 mg Ondansetron HCl (Zofran Inj*) 4 mg IV Q6H PRN PRN Reason: NAUSEA Pharmacy Profile Note (Fentanyl Patch Check Q Shift) 1 note N/A 0700,1900 [facility] Last Admin: 08/31/16 07:14 Dose: 1 note Physical Exam: General: awakens, not alert, moans, nonverbal, no distress, no diaphoresis Head: normocephalic, atraumatic HEENT: no pallor, no icterus, dry mucous membranes Neck: no stridor, no jvd CVS: normal rate, normal rhythm, no murmur Resp: bilateral air entry, no rhales, no wheeze, no rhonchi, no acc muscle use Abdomen: soft, tender diffusely, tense but not distended, bowel sounds present but diminished; peg/jtube site has ordoñez to keep patent Ext: pulses+, warm, no edema; bilateral hips with tenderness to deep palpation R >L Skin: intact, no breakdown, no dryness; posterior sacral nonblanching stage 1 pressure wounds Neuro: awakens, not alert, moves arms spontaneously but not to command, not verbal, doesnt track, unable to assess full neuro exam. Labs: reviewed, none new Imaging: Cxr 08/27 RLL consolidation+, possible small left lower lobe infiltrate; no effusion Assessment: 76y M pmhx of HTN, CVA with hemiplegia/dysphagia, nonverbal? Who came in 08/26 for fall, sob and hypoxia, found to have aspiration pneumonia, mesenteric ischemia with pneumobilia and now BHUMI; was already DNR/DNI status. -Acute Hypoxic Respiratory Failure -Aspiration pneumonia -Septic Shock?, improved -Mesenteric Ischemia -?Septic hip joints -BHUMI, septic ATN vs volume depletion/pre-renal azotemia -Lactic acidosis improved -h/o CVA, hemiplegia/dysphagia -dislodged j-tube ? -Encephelopathy, delirium from metabolic/toxic/pain with underlying declining mentation from CVA? Plan: Neuro- baseline CVA, nonverbal? can he understand me? nonmobile. only moans. CVS- Stable hemodynamics. appears euvolemic. on NS infusion, making good urine. Will taper hydrocoritisone Resp- remains on hiflow cannula, sats mid 90s, no resp distress. cont weaning fio2, bronchodilators. no NIV indicated/poor candidate and a DNI/DNR. last cxr with RLL infiltrate. no abx, remains afebrile. doesnt sound wet or with rhales. slow improvement. off feeds now. ID- wbc was improving from last labs, afebrile. off abx. has been stable and slowly improving it seems? not coming off hiflow though. monitor off abx, likely just pneumonitis from aspiration. GI- jtube with ordoñez to hold opening; GI eval was done. due to ongoing mesenteric ischemia/abd tenderness not a good candidate for starting feeds, may worsen pain/obstruction. Holding on replacing peg tube. NPO. Renal- Making urine. no labs done as per family request. Nonoliguric BHUMI. on d5 1/2ns infusion for hypernatremia and for hydration. appears euvolemic. Based on palliative care discussion with family and patients prior wishes of DNR/DNI, no life sustaining invasive intervention, HD is not an option now either, though he is not at current indication for it either. Heme- no active bleeding no antiplatelets/AC on board. Endo- FS checks as needed Musculsk- in bed, not mobile much. unclear how much he can work with PT Wounds- stage 1 sacral pressure wounds; wound care Nutrition- NPO; d5 1/2 infusion. poor po intake due to mental status Pain control with IV dilaudid infusion; prn iv dilaudid push. fentanyl patch seems to be helping also. Ativan PRN for distress/agitation has been given. Would prefer to just give pain medication for comfort. Palliative Care following. DVT prophylaxis: compression boots GI prophylaxis: yes Central Line: no Arterial Line: no Ordoñez Cathetor: yes Disposition: family contacted. DNR/DNI otherwise. They wish to keep him comfortable also; no further blood draws/testing. No HD. SW following. Will refer case for possible inpatient hospice given his continuing pain and multiple acute medical problems, requiring IV opiate infusion. Poor prognosis. Comfort care/DNR/DNI. Code Status: DNR/DNI Octavio Deras MD 911 Emergency Services Dispatcher (Electronically Signed)
[2016-09-01] MEDS: HYDROmorphone* 1 MG/ML 1 ML SYR IV SLOW PU PRN ×2 (02:01→08:38)
[2016-09-01] MEDS: HYDROmorphone PCA* 20 MG/20 ML PCA.SYRING PCA SCH ×4 (04:04→23:15)
[2016-09-01] MEDS: fentaNYL Patch Check Q Shift 1 NOTE SCH ×2 (07:29→19:20)
--- NOTE | 2016-09-01 09:38 | PN ---
Subjective Date of Service: 09/01/16 Interval History: Patient seen this morning. Appears uncomfortable, some rapid breathing. Says " Ow ow ow" with palpation of stomach. Some intermittent verbal response to questioning although speech is incoherent. Received additional prn dilaudid x2 overnight. Family History: Unchanged from Admission Social History: Unchanged from Admission Past Medical History: Unchanged from Admission Objective Active Medications: Acetaminophen (Tylenol Tab*) 650 mg PO Q4H PRN Fentanyl (Duragesic Patch 25 Mcg/Hr*) 25 mcg TRANSDERM Q72H URAVSHI Hydromorphone HCl (Dilaudid Iv*) 1 mg IV SLOW PU Q1HR PRN Hydromorphone HCl (Dilaudid Coach*) 20 mg in 20 mls @ 0 mls/hr CIVIL DESIGNER .change Q24H URVASHI; Per Protocol Lorazepam (Ativan Inj*) 2 mg IV PUSH Q2HR PRN Ondansetron HCl (Zofran Inj*) 4 mg IV Q6H PRN Pharmacy Profile Note (Fentanyl Patch Check Q Shift) 1 note N/A 0700,1900 [facility] Vital Signs 08/31/16 08/31/16 08/31/16 11:10 14:29 15:03 Temperature 96.7 F Pulse Rate 79 Respiratory 25 25 Rate Blood Pressure 150/81 (mmHg) O2 Sat by Pulse 88 88 Oximetry 09/01/16 09/01/16 09/01/16 04:04 08:38 09:16 Temperature Pulse Rate Respiratory 18 22 Rate Blood Pressure (mmHg) O2 Sat by Pulse 5 Oximetry Oxygen Devices in Use Now: Nasal Cannula Appearance: Elderly, M, laying in bed in mild distress Eyes: No Scleral Icterus Ears/Nose/Mouth/Throat: - - Dry MM Neck: NL Appearance and Movements; NL JVP Respiratory: - - Some transmitted upper airway sounds, coarse, fair air movement Cardiovascular: NL Sounds; No Murmurs; No JVD, RRR Abdominal: - - Soft, TTP, G tube in place to suction Lymphatic: No Cervical Adenopathy Extremities: No Edema Neurological: - - Lethargic, somewhat responsive to voice Result Diagrams: 08/29/16 12:15 08/29/16 12:15 Additional Lab and Data: Microbiology and Other Data: Microbiology 08/26/16 23:30 Aerobic Blood Culture - Final Blood Venous No Growth Day 5 Anaerobic Blood Culture - Final No Growth Day 5 Blood Culture - Final 08/27/16 04:07 Urine Culture - Final Urine No Growth (<1,000 CFU/mL) 08/27/16 04:07 Legionella Urinary Antigen - Final Urine Negative Legionella Streptococcus pneumoniae Ag Screen - Final Negative S. pneumo Antigen 08/26/16 23:10 Nasal Screen MRSA (PCR)(KACIE) - Final Nasal Mrsa Positive Assess/Plan/Problems-Billing Assessment: Hypoxic respiratory failure 2/2 aspiration PNA, BHUMI on CKD, possible mesenteric ischemia and septic hip in a 76 yo M with hx of dementia, CVA with hemiparesis and dysphagia s/p PEG tube now on comfort care and qualifies for hospice - Patient Problems (1) Comfort measures only status Current Visit: Yes Comment: Pain does not seem well controlled. Patient required additional IV dilaudid this AM. Dilaudid gtt was increased yesterday to 3 mg/hr, will increase now to 4 mg/hr. Continue to have additional prn available as patient is not able to administer himself, will increase to 2 mg prn. Continue fentanyl patch. Will start atropine gtts for secretions as he is having rattling breath sounds. Ativan prn available. Prognosis likely hours- days. Status and Disposition: Still requiring titration of medications for comfort.
[2016-09-01] MEDS: Atropine 1% (ORAL/SL)* 15 ML BTL SL PRN ×2 (11:52→17:13)
--- NOTE | 2016-09-01 12:33 | PN ---
Progress Note - Progress Note Note: Palliative care follow up note - Patient appears comfortable. Shallow rhonchorous breath sounds. Minimally arousable to tactile stimuli. Agree with drip and prn dilaudid and ativan. appears imminent within next 24 hours.
[2016-09-02 03:38] VITALS: BP 118/56
[2016-09-02] MEDS: HYDROmorphone PCA* 20 MG/20 ML PCA.SYRING PCA SCH ×5 (03:55→23:54)
[2016-09-02] MEDS: Atropine 1% (ORAL/SL)* 15 ML BTL SL PRN (05:33)
[2016-09-02] MEDS: fentaNYL Patch Check Q Shift 1 NOTE SCH ×2 (07:04→19:05)
[2016-09-02] MEDS: HYDROmorphone* 2 MG/ML 1 ML SYR IV SLOW PU PRN ×2 (10:12→20:50)
--- NOTE | 2016-09-02 11:30 | PN ---
Subjective Date of Service: 09/02/16 Interval History: Patient seen this morning. Breathing a bit labored, opens eyes to voice, incoherent speech. Family History: Unchanged from Admission Social History: Unchanged from Admission Past Medical History: Unchanged from Admission Objective Active Medications: Acetaminophen (Tylenol Tab*) 650 mg PO Q4H PRN PRN Reason: FEVER/PAIN Atropine Sulfate (Atropine 1% (Oral/Sl)*) 2 drop SL Q2H PRN PRN Reason: Discomfort/rattling Last Admin: 09/02/16 05:33 Dose: 2 drop Fentanyl (Duragesic Patch 25 Mcg/Hr*) 25 mcg TRANSDERM Q72H URVASHI Last Admin: 08/30/16 14:31 Dose: 25 mcg Hydromorphone HCl (Dilaudid Iv*) 2 mg IV SLOW PU Q1HR PRN PRN Reason: PAIN Last Admin: 09/02/16 10:12 Dose: 2 mg Hydromorphone HCl (Dilaudid Yardage Control Operator*) 20 mg in 20 mls @ 0 mls/hr [employer] FITNESS INSTRUCTOR .change Q24H URVASHI; Per Protocol PRN Reason: Protocol Last Admin: 09/02/16 08:34 Dose: 4 mls/hr Lorazepam (Ativan Inj*) 2 mg IV PUSH Q2HR PRN PRN Reason: ANXIETY Last Admin: 08/31/16 22:52 Dose: 2 mg Ondansetron HCl (Zofran Inj*) 4 mg IV Q6H PRN PRN Reason: NAUSEA Pharmacy Profile Note (Fentanyl Patch Check Q Shift) 1 note N/A 0700,1900 [facility] Last Admin: 09/02/16 07:04 Dose: 1 note Vital Signs 09/01/16 09/01/16 09/01/16 17:11 17:12 20:00 Pulse Rate Respiratory 20 20 24 Rate O2 Sat by Pulse Oximetry 09/01/16 09/02/16 09/02/16 23:15 00:15 03:55 Pulse Rate Respiratory 24 32 24 Rate O2 Sat by Pulse Oximetry 09/02/16 09/02/16 09/02/16 04:55 05:38 08:34 Pulse Rate 93 Respiratory 30 30 Rate O2 Sat by Pulse 89 Oximetry 09/02/16 09/02/16 09/02/16 08:45 09:34 10:12 Pulse Rate Respiratory 30 26 26 Rate O2 Sat by Pulse Oximetry Oxygen Devices in Use Now: Nasal Cannula Appearance: Elderly, M, laying in bed asleep Eyes: No Scleral Icterus Ears/Nose/Mouth/Throat: - - Dry MM Neck: NL Appearance and Movements; NL JVP Respiratory: - - Rapid, irregular breathing, some coarse BS Cardiovascular: NL Sounds; No Murmurs; No JVD, RRR Abdominal: - - PEG tube in place Lymphatic: No Cervical Adenopathy Extremities: No Edema Neurological: - - Opens eyes to voice, unintelligible speech, some intermittent facial twitching Lines/Tubes/Other Access: Clean, Dry and Intact Percuteneous Feeding Tube - draining brown liquid Result Diagrams: 08/29/16 12:15 08/29/16 12:15 Additional Lab and Data: Microbiology and Other Data: Assess/Plan/Problems-Billing Assessment: Hypoxic respiratory failure 2/2 aspiration PNA, BHUMI on CKD, possible mesenteric ischemia and septic hip in a 76 yo M with hx of dementia, CVA with hemiparesis and dysphagia s/p PEG tube now on comfort care and qualifies for hospice - Patient Problems (1) Comfort measures only status Current Visit: Yes Comment: Continue dilaudid gtt at 4 mg/hr for now with prn available. Continue fentanyl patch. Continue atropine gtts. Ativan prn available , will give a dose now with facial twitching. Prognosis likely hours-days. Status and Disposition: Still requiring titration of medications for comfort.
[2016-09-02] MEDS: LORazepam INJ* 2 MG/ML 1 ML VIAL IV PUSH PRN ×2 (13:17→20:49)
[2016-09-02] MEDS: fentaNYL PATCH 25 MCG/HR TRANSDERM SCH (15:50)
[2016-09-03] MEDS: HYDROmorphone PCA* 20 MG/20 ML PCA.SYRING PCA SCH ×3 (04:27→13:59)
[2016-09-03] MEDS: fentaNYL Patch Check Q Shift 1 NOTE SCH (06:28)
[2016-09-03] MEDS: LORazepam INJ* 2 MG/ML 1 ML VIAL IV PUSH PRN ×2 (08:47→12:54)
[2016-09-03] MEDS: HYDROmorphone* 2 MG/ML 1 ML SYR IV SLOW PU PRN ×2 (08:49→12:55)
--- NOTE | 2016-09-03 09:35 | DCNOTE ---
Patient seen this morning. Resting comfortably, breathing slightly rapid. On exam, RRR, lungs clear in anterior del cid, no abd TTP Discharge to hospice residence today once IV pump delivered
[2016-09-03] MEDS ORDERED: HYDROmorphone* 2 MG/ML 1 ML SYR IV SLOW PU ONE (09:47)
--- NOTE | 2016-09-04 07:18 | DS ---
DISCHARGE SUMMARY: DATE OF ADMISSION: 08/26/16 DATE OF DISCHARGE: 09/03/16 to swing status. HISTORY OF PRESENT ILLNESS AND HOSPITAL SUMMARY: Please see the full history and physical by Nate vieyra NP, for full details. Briefly, Mr. Gallo is a 76-year- old male with a past medical hist ory of CVA with left-sided hemiparesis, dysphagia and G-tube placement, dementia, who [facility] with acute hypoxic respiratory failure that was felt to be due to aspiration pneumonia. The patient's hospital course was complicated by ischemic bowel and worsening renal failure. Pallia tive Care was consulted and a decision was made with the patient's sister, Nellie Lo, as his healthcare proxy to make the patient comfort care. He was transitioned to a Dilaudid drip with edgar ns to discharge the patient to hospice residence. In the interim, as he seems to be relatively stab le, change the patient to swing status until he is placed. TIME SPENT: Total time spent on this discharge 35 minutes. This is summary of the hospitalization. Please see the full medical record for further details. [id number]/[facility] #: [id number]
== END 2016-09-03 17:25 | disposition expired | DRG 871 ==
LOC: ED 18:35 → ICU 21:04 → MED 08-31 11:12
PROVIDERS: ADMIT Internal Medicine; ATTEND Hospitalist
DX: A41.9 Sepsis, unspecified organism (principal); J69.0 Pneumonitis due to inhalation of food and vomit; J96.01 Acute respiratory failure with hypoxia; N17.0 Acute kidney failure with tubular necrosis; R65.21 Severe sepsis with septic shock; K55.059 Acute (reversible) ischemia of intestine, part and extent unspecified; G93.1 Anoxic brain damage, not elsewhere classified; E87.2 Acidosis; S01.311A Laceration without foreign body of right ear, initial encounter; W06.XXXA Fall from bed, initial encounter; Y92.9 Unspecified place or not applicable; K59.00 Constipation, unspecified; F03.90 Unspecified dementia, unspecified severity, without behavioral disturbance, psychotic disturbance, mood disturbance, and anxiety; Z86.73 Personal history of transient ischemic attack (TIA), and cerebral infarction without residual deficits; I10 Essential (primary) hypertension; F32.9 Major depressive disorder, single episode, unspecified; S39.91XA Unspecified injury of abdomen, initial encounter; G89.29 Other chronic pain; Z66 Do not resuscitate; Z93.1 Gastrostomy status; N18.9 Chronic kidney disease, unspecified; Z51.5 Encounter for palliative care; M25.452 Effusion, left hip; M25.451 Effusion, right hip
CPT/HCPCS: 36415; 71010; 71020; 74176; 76770; 80048; 80053; 81003; 81015; 82607; 82728; 82746; 83540; 83550; 83605; 83735; 83880; 84100; 84484; 85025; 85610; 87040; 87086; 87641; 87899; 93005; 94760; A9270-GY; J1170; J1644; J1720; J1940; J2060; J2270; J2543; J3370

== ENCOUNTER 2016-09-03 17:24 | Inpatient (IN) | payer MEDICARE, MEDICAID ==
[2016-09-03 17:49] VITALS: BP 118/56
[2016-09-03] MEDS ORDERED: fentaNYL PATCH 25 MCG/HR TRANSDERM SCH (18:00)
[2016-09-03] MEDS: fentaNYL Patch Check Q Shift 1 NOTE SCH (19:15)
[2016-09-03] MEDS: HYDROmorphone PCA* 20 MG/20 ML PCA.SYRING PCA SCH ×2 (19:18→23:48)
[2016-09-03] MEDS: LORazepam INJ* 2 MG/ML 1 ML VIAL IV PUSH PRN (20:31)
[2016-09-03] MEDS: HYDROmorphone* 2 MG/ML 1 ML SYR IV SLOW PU PRN ×2 (20:32→22:56)
[2016-09-04] MEDS: HYDROmorphone PCA* 20 MG/20 ML PCA.SYRING PCA SCH ×5 (04:31→22:46)
[2016-09-04] MEDS: HYDROmorphone* 2 MG/ML 1 ML SYR IV SLOW PU PRN ×2 (06:04→15:08)
[2016-09-04] MEDS: fentaNYL Patch Check Q Shift 1 NOTE SCH ×2 (07:09→18:35)
[2016-09-04] MEDS: LORazepam INJ* 2 MG/ML 1 ML VIAL IV PUSH PRN ×5 (10:41→21:54)
[2016-09-04] MEDS: Atropine 1% (ORAL/SL)* 15 ML BTL SL PRN ×4 (10:43→21:56)
--- NOTE | 2016-09-05 09:59 | DS ---
SUMMARY: DATE OF ADMISSION: 08/26/16 DATE OF TRANSFER: To swing status 09/03/16. DATE OF : 09/05/16 PRIMARY DIAGNOSIS: Acute hypoxic respiratory failure. SECONDARY DIAGNOSES: 1. Aspiration pneumonia. 2. Ischemic bowel with lactic acidosis. 3. Acute renal failure. 4. History of stroke. 5. Dementia. 6. Chronic pain. HOSPITAL COURSE: The patient was admitted with respiratory failure and aspiration when he was seen on chest x-ray of August 27. The patient had a unfortunate hospital course with continued hypoxia and ischemic bowel and worsening renal failure with a creatinine up to 5.5 from a baseline of 2.1. The patient has consultation with hospice and the situation was discussed with the patient's family. It was decided to make him comfort measures only and he was transferred to swing status on September 03. As he had come from [facility] and he was going to return there as a hospice patient. On the baseball pitcher on the the patient was found to be pulseless and apneic. The patient was do not resuscitate, do not intubate. The family was notified, no autopsy is requested. DATE OF : 09/05/16. TIME OF : 1:32 a.m. CC: [facility]; Carole Hays MD * [id number]/[facility] #: [id number] AUBREE
== END 2016-09-05 01:32 | disposition expired | DRG 189 ==
LOC: MED 17:26
PROVIDERS: ADMIT Hospitalist; ATTEND Hospitalist
DX: J96.01 Acute respiratory failure with hypoxia (principal); J69.0 Pneumonitis due to inhalation of food and vomit; N17.9 Acute kidney failure, unspecified; K55.9 Vascular disorder of intestine, unspecified; F03.90 Unspecified dementia, unspecified severity, without behavioral disturbance, psychotic disturbance, mood disturbance, and anxiety; G89.29 Other chronic pain; Z86.73 Personal history of transient ischemic attack (TIA), and cerebral infarction without residual deficits; Z66 Do not resuscitate
CPT/HCPCS: 94760; A9270-GY; J1170; J2060; J2270